=== PATIENT | female | born 1950 | race Caucasian/White ===

== ENCOUNTER 2016-12-29 15:40 | Emergency (ER) | payer BC ==
[~2016-12-29 15:40] MED LIST: ALPR-138 PO; ASPI81TA82 PO; FURO1TAB93 PO; KLOR20TA6 PO; LABE100T2 PO; PRAV20 PO; PROM25SU8 PO
[2016-12-29 15:47] VITALS: BP 131/78; PULSE 78; RESP 20; TEMP 98.2; O2SAT 98
[2016-12-29] MEDS ORDERED: SODIUM CHLORIDE 0.9% FLUSH 10 ML FLUSH IV FLUSH PRN (16:00)
[2016-12-29] MEDS ORDERED: SODIUM CHLOR 0.9% 1000 ML INJ 1,000 ML IV SCH (16:00)
--- NOTE | 2016-12-29 16:05 | PD ---
HPI Chief Complaint: GI Complaint Time Seen by Provider: 15:54 Travel History International Travel<30 days: Yes Contact w/Intl Traveler<30days: Yes Name of Country Traveled to: [facility] Traveled to known affect area: No History of Present Illness HPI 66-year-old female who returned today from [facility], here for evaluation of diarrhea for one week. Patient reports that she called her primary care physician's office today who advised her to present to the emergency Department for labs and IV fluids. Patient denies vomiting or abdominal pain. She occasionally has bilateral flank discomfort. No urinary symptoms. She has had diarrhea for 1 week. Stool was initially green, then brown, then black, now green again. She denies seeing any blood in the stool, however reports that she has not really evaluated the stool. She had fevers for 2 days one week ago. She was evaluated while in [place] and was told that she had a virus. No recent antibiotic use or hospitalizations. PFSH Past Medical History Hx Anticoagulant Therapy: Yes (ASA 81MG DAILY) Arthritis: Yes Asthma: Yes Anxiety: Yes ("stressed out") Heart Rhythm Problems: Yes Cardiovascular Problems: Yes High Cholesterol: Yes Diminished Hearing: No Diverticulitis: Yes (AND COLITIS) Gastrointestinal Disorders: Yes (ischemic colitis) Glaucoma: Yes (not sure) Headaches: Yes Hypertension: Yes Musculoskeletal: Yes Psychiatric: Yes Respiratory: Yes Menopausal: No Past Surgical History Abdominal Surgery: Yes (laparoscopy) Section: Yes (X2) Gynecologic Surgery: Yes (HYSTERECTOMY//) Hysterectomy: Yes Joint Replacement: No (reattached muscle/ tendon in both elbow; left knee scope ) Oral Surgery: Yes (WISDOM TEETH REMOVED X2 CAPS) Other Surgery: Yes Social History Alcohol Use: Yes (socially drinks wine and etoh) Tobacco Use: No Substance Use: No Allergies-Medications (Allergen,Severity, Reaction): Coded Allergies: Sulfa (Sulfonamide Antibiotics) (Unverified Allergy, Mild, 12/29/16) bee venom protein (honey bee) (Unverified Allergy, Mild, Rash, 12/29/16) coconut (Unverified Allergy, Mild, 12/29/16) penicillin G (Unverified Allergy, Mild, 12/29/16) tetanus toxoid, adsorbed (Unverified Allergy, Mild, 12/29/16) RASH Reported Meds & Prescriptions Reported Meds & Active Scripts Active Reported Diltiazem CD 24 HR 120 Mg Caper 180 Mg PO DAILY Pravastatin 40 Mg Tab 40 Mg PO DAILY Furosemide 20 Mg Tab 20 Mg PO DAILY Potassium Chloride ER (Potassium Chloride) 20 Meq Tab 10 Meq PO DAILY Xanax (Alprazolam) 0.5 Mg Tab 0.5 Mg PO BID PRN Review of Systems Except as stated in HPI: all other systems reviewed are Neg Physical Exam Narrative GENERAL: Well-developed, well-nourished, comfortable, no acute distress. SKIN: Focused skin assessment warm/dry. HEAD: Atraumatic. Normocephalic. EYES: Pupils equal and round. No scleral icterus. No injection or drainage. ENT: Mucous membranes pink and dry. NECK: Trachea midline. No JVD. CARDIOVASCULAR: Regular rate and rhythm. RESPIRATORY: No accessory muscle use. Clear to auscultation. Breath sounds equal bilaterally. GASTROINTESTINAL: Abdomen soft, non-tender, nondistended. Normal bowel sounds. MUSCULOSKELETAL: No obvious deformities. No clubbing. No cyanosis. No edema. Moderate bilateral CVA tenderness. No midline vertebral step-off or tenderness. NEUROLOGICAL: Awake and alert. No obvious cranial nerve deficits. Motor grossly within normal limits. Normal speech. PSYCHIATRIC: Appropriate mood and affect; insight and judgment normal. Data Data Last Documented VS Vital Signs Date Time Temp Pulse Resp B/P (MAP) Pulse Ox O2 Delivery O2 Flow Rate FiO2 12/29/16 16:28 69 18 165/78 (107) 98 Room Air 12/29/16 15:47 98.2 Orders Orders Complete Blood Count With Diff (12/29/16 16:00) Comprehensive Metabolic Panel (12/29/16 16:00) Lipase (12/29/16 16:00) Urinalysis - C+S If Indicated (12/29/16 16:00) Iv Access Insert/Monitor (12/29/16 16:00) Ecg Monitoring (12/29/16 16:00) Oximetry (12/29/16 16:00) Sodium Chlor 0.9% 1000 Ml Inj (Ns 1000 M (12/29/16 16:00) Sodium Chloride 0.9% Flush (Ns Flush) (12/29/16 16:00) Cryptosporidium (Stool) (12/29/16 16:00) Giardia Antigen (Stool) (12/29/16 16:00) Stool Ova And Parasite Screen (12/29/16 16:00) Stool Wbc (Leukocytes) (12/29/16 16:00) Enteric Path (Stool) (12/29/16 16:00) Cyclospora (Stool) (12/29/16 16:00) C Diff Toxin Pcr (12/29/16 16:00) Urine Culture (12/29/16 16:22) Potassium Chloride (Kcl) (12/29/16 17:00) Ciprofloxacin (Cipro) (12/29/16 17:15) Labs Laboratory Tests Test 12/29/16 16:22 White Blood Count 8.5 TH/MM3 Red Blood Count 4.52 MIL/MM3 Hemoglobin 12.9 GM/DL Hematocrit 39.0 % Mean Corpuscular Volume 86.4 FL Mean Corpuscular Hemoglobin 28.5 PG Mean Corpuscular Hemoglobin Concent 33.0 % Red Cell Distribution Width 13.9 % Platelet Count 335 TH/MM3 Mean Platelet Volume 8.8 FL Neutrophils (%) (Auto) 56.4 % Lymphocytes (%) (Auto) 26.5 % Monocytes (%) (Auto) 11.7 % Eosinophils (%) (Auto) 3.6 % Basophils (%) (Auto) 1.8 % Neutrophils # (Auto) 4.8 TH/MM3 Lymphocytes # (Auto) 2.2 TH/MM3 Monocytes # (Auto) 1.0 TH/MM3 Eosinophils # (Auto) 0.3 TH/MM3 Basophils # (Auto) 0.2 TH/MM3 CBC Comment AUTO DIFF Urine Color YELLOW Urine Turbidity CLEAR Urine pH 6.0 Urine Specific [place] 1.012 Urine Protein NEG mg/dL Urine Glucose (UA) NEG mg/dL Urine Ketones NEG mg/dL Urine Occult Blood TRACE Urine Nitrite NEG Urine Bilirubin NEG Urine Leukocyte Esterase NEG Urine RBC 0-3 /hpf Urine WBC 0-2 /hpf Urine WBC Clumps OCC Urine Squamous Epithelial Cells 0-5 /hpf Urine Mucus FEW /lpf Microscopic Urinalysis Comment CULTURE INDICATED Blood Urea Nitrogen 10 MG/DL Creatinine 0.74 MG/DL Random Glucose 100 MG/DL Total Protein 6.7 GM/DL Albumin 3.0 GM/DL Calcium Level 8.7 MG/DL Alkaline Phosphatase 82 U/L Aspartate Amino Transf (AST/SGOT) 16 U/L Alanine Aminotransferase (ALT/SGPT) 29 U/L Total Bilirubin 0.2 MG/DL Sodium Level 140 MEQ/L Potassium Level 3.4 MEQ/L Chloride Level 103 MEQ/L Carbon Dioxide Level 30.1 MEQ/L Anion Gap 7 MEQ/L Estimat Glomerular Filtration Rate 79 ML/MIN Lipase 705 U/L [facility] Medical Decision Making Medical Screen Exam Complete: Yes Emergency Medical Condition: Yes Differential Diagnosis Traveler's diarrhea, infectious diarrhea, diarrhea, dehydration, metabolic abnormality, UTI, pyelonephritis, nephrolithiasis Narrative Course Initial vital signs show heart rate 78, blood pressure 131/78, pulse ox 98% on room air, oral temp of 98.2F. CBC shows WBC 8.5, hemoglobin 12.9, hematocrit 39, platelets 335. Monocytes 11.7% CMP is remarkable for potassium 3.4, otherwise unremarkable. Lipase is 705. UA shows occasional WBC clumps, few mucus. Patient was made aware of all findings. She was given a liter of normal saline IV. Potassium replaced orally. There are no peritoneal signs on her abdominal exam. She is overall very well-appearing. At this point my plan is to start her on Cipro to help treat her pyuria as well as hopefully treat her traveler's diarrhea. Her lipase is slightly elevated at 705, however this is about 2 times the upper limit of normal, and I do not believe this represents an acute pancreatitis. Stool studies ordered, however the patient was unable to provide a stool sample here in the emergency department. She is stable for discharge home with outpatient follow-up with her memory care physician in the next 1-2 days. I advised her to stay hydrated with plenty of fluids. She was informed on when to return to the emergency department. She verbalizes understanding and agreement with plan. Diagnosis Primary Impression: Diarrhea Qualified Codes: R19.7 - Diarrhea, unspecified Additional Impression: Pyuria Referrals: Primary Care Physician 1 day Additional Instructions: Follow-up with your primary care physician in the next 1-2 days. Stay hydrated with plenty of fluids. Return to the emergency department for worsening symptoms or any other concerns. Scripts Ciprofloxacin (Ciprofloxacin) 500 Mg Tab 500 MG PO BID for Infection for 5 Days, #10 TAB 0 Refills Prov: Burak Beebe MD 12/29/16 Disposition: 01 DISCHARGE HOME Condition: Stable Burak Beebe MD Dec 29, 2016 16:05
[2016-12-29 16:10] VITALS: O2SAT 97
[2016-12-29] MEDS ORDERED: ALPR.5 PO (16:10)
[2016-12-29] MEDS ORDERED: POTA-163 PO (16:10)
[2016-12-29] MEDS ORDERED: DILT-60 PO (16:10)
[2016-12-29] MEDS ORDERED: FURO20TA PO (16:10)
[2016-12-29] MEDS ORDERED: PRAV40TA2 PO (16:10)
[2016-12-29 16:28] VITALS: BP 165/78; PULSE 69; RESP 18; O2SAT 98
[2016-12-29 16:31] LABS: AUTOMATED NEUTROPHIL # 4.8 TH/MM3 (1.8-7.7); BASOPHIL # 0.2 TH/MM3 (0-0.2); BASOPHIL % 1.8 % (0.0-2.0); EOSINOPHIL # 0.3 TH/MM3 (0-0.4); EOSINOPHIL % 3.6 % (0.0-4.0); LYMPH % 26.5 % (9.0-44.0); LYMPHOCYTE # 2.2 TH/MM3 (1.0-4.8); MEAN CELL VOLUME 86.4 FL (80.0-100.0); MEAN CORPUSCULAR HEMOGLOBIN 28.5 PG (27.0-34.0); MONO % 11.7 % (0.0-8.0); NEUT % 56.4 % (16.0-70.0); PLATELET COUNT 335 TH/MM3 (150-450); RED BLOOD COUNT 4.52 MIL/MM3 (4.00-5.30); RED CELL DISTRIBUTION WIDTH 13.9 % (11.6-17.2); WHITE BLOOD COUNT 8.5 TH/MM3 (4.0-11.0)
[2016-12-29 16:32] LABS: GLUCOSE,URINE NEG (NEG); KETONE, URINE NEG (NEG); NITRITE,URINE NEG (NEG)
[2016-12-29 16:36] LABS: HEMO FLAGS AUTO DIFF
[2016-12-29 16:38] LABS: BLOOD, URINE TRACE (NEG); CHLORIDE 103 MEQ/L (98-107); POTASSIUM 3.4 MEQ/L (3.5-5.1); SODIUM (NA) 140 MEQ/L (136-145)
[2016-12-29 16:42] LABS: ANION GAP 7 MEQ/L (5-15); BICARBONATE 30.1 MEQ/L (21.0-32.0); BLOOD UREA NITROGEN 10 MG/DL (7-18)
[2016-12-29 16:45] LABS: ALT (GPT) 29 U/L (10-53); AST (GOT) 16 U/L (15-37); GLOMERULAR FILTRATION RATE 79 ML/MIN (>89)
[2016-12-29 16:46] LABS: TOTAL BILIRUBIN ADULT 0.2 MG/DL (0.2-1.0)
[2016-12-29 16:48] LABS: ALKALINE PHOSPHATASE 82 U/L (45-117)
[2016-12-29 16:49] LABS: MUCUS URINE FEW /lpf (OCC); RBC, URINE 0-3 /hpf (0-3); SQUAMOUS EPITHELIAL CELL URINE 0-5 /hpf (0-5); URINE COLOR YELLOW (YELLW/STRAW); WBC, URINE 0-2 /hpf (0-5)
[2016-12-29 16:50] LABS: COMMENT (UR) CULTURE INDICATED; CULTURE IF INDICATED CULTURE INDICATED
[2016-12-29] MEDS ORDERED: POTASSIUM CHLORIDE 20 MEQ CONTROLLED RELEASE TAB PO ONE (17:00)
[2016-12-29] MEDS ORDERED: CIPR500T2 PO (17:14)
[2016-12-29] MEDS ORDERED: CIPROFLOXACIN 500 MG TAB PO ONE (17:15)
[2016-12-29 17:29] VITALS: BP 162/83; PULSE 84; RESP 18; O2SAT 98
[2016-12-29 17:33] LABS: SCAN/DIFF AUTO DIFF CONFIRMED
== END 2016-12-29 17:44 | disposition home or self-care (01) ==
LOC: PHED 15:40
DX: R19.7 Diarrhea, unspecified (principal); N39.0 Urinary tract infection, site not specified; Z79.82 Long term (current) use of aspirin; M19.90 Unspecified osteoarthritis, unspecified site; J45.909 Unspecified asthma, uncomplicated; E78.00 Pure hypercholesterolemia, unspecified; I10 Essential (primary) hypertension; Z87.19 Personal history of other diseases of the digestive system
CPT/HCPCS: 80053; 81001; 83690; 85025; 87086; 96360; 99284; J7030